=== PATIENT | female | born 1965 | race Two or more races ===

== ENCOUNTER 2021-07-17 23:47 | Emergency (ER) | payer SELFPAY ==
[~2021-07-17] VITALS: Ht 165.1 cm; Wt 88.6 kg
[2021-07-17 23:57] VITALS: BP 128/65
[2021-07-18] MEDS ORDERED: ONDANSETRON ODT 4 MG TAB.RAPDIS. PO ONE (00:15)
[2021-07-18] MEDS ORDERED: IBUPROFEN 400 MG TABLET. PO ONE (00:15)
[2021-07-18] MEDS ORDERED: ACETAMINOPHEN 500 MG TABLET PO ONE (00:15)
--- NOTE | 2021-07-18 00:39 | RAD ---
EXAM: CT head without contrast INDICATION: Headache COMPARISON: None TECHNIQUE: Axial CT imaging through the head without intravenous contrast. Sagittal and coronal refor mats were obtained. One or more of the following individualized dose reduction techniques were utilized for this examinat ion: 1. Automated exposure control 2. Adjustment of the mA and/or kV according to patient size 3. Use of iterative reconstruction technique. FINDINGS: There is artifact in the left cerebral hemisphere along the midline. No intracranial hemorrhage, acut e infarct, or mass lesion. Ventricles and sulci are normal. Mccallum-white matter differentiation is main tained. The skull and scalp are intact. There is mild to moderate mucosal thickening in the paranasal sinuses. Mastoid air cells are clear. Globes and orbits are intact. IMPRESSION: 1. No acute intracranial abnormality. 2. Paranasal sinus disease. Electronically signed by: Lala Painter MD (07/18/2021 12:36 AM) [facility]
--- NOTE | 2021-07-18 00:57 | PHYS DOC ---
Past Medical History Past Surgical History: No Surgical History Adult General Chief Complaint Chief Complaint: HEADACHE HPI HPI The patient is a 55-year-old female with a history of hypertension, [id number] diabetes and schizophrenia. [facility]. She presents via EMS for evaluation of reported vomiting at her facility. I spoke directly with the patient's nurse at her care facility; she relayed that no one at the facility had actually seen the patient vomit but reported that the patient requested to come to the hospital because she had been throwing up. On arrival to the emergency department patient denies that she has had any vomiting. Her only complaint is of a headache. She characterizes it as generalized in localization and 7 out of 10 in severity. She also tells me that she has "a lot of voices in my head" which she states is normal for her with her schizophrenia. On arrival to the emergency department patient immediately begins asking for a telephone to call her family. Any medical complaints she may have seem very secondary to a desire to speak with her family on the telephone. She relayed to the nurse that "no one likes me where I live and I just want to talk to my family." Suspect she may have not had immediate access to a telephone to speak with her family at the facility and asked to come to the hospital so that she could use a telephone. Vital signs are appropriate here and the patient is in no acute distress, calm, cooperative, alert, oriented and appropriately interactive. Review of Systems Review of Systems A 12 point review of systems was completed and was negative except where noted in HPI above. Current Medications Current Medications Current Medications Medications (Trade) Dose Ordered Sig/Stanislav Start Time Stop Time Status Last Admin Dose Admin Acetaminophen (Tylenol) 1,000 mg 1X ONCE 07/18/21 00:15 07/18/21 00:34 DC 07/18/21 00:40 1,000 MG Ibuprofen (Motrin) 800 mg 1X ONCE 07/18/21 00:15 07/18/21 00:34 DC 07/18/21 00:39 800 MG Ondansetron HCl (Zofran Odt) 4 mg 1X ONCE 07/18/21 00:15 07/18/21 00:34 DC 07/18/21 00:39 4 MG Allergies Allergies Allergies Coded Allergies Type Severity Reaction Last Updated Verified Penicillins Allergy Unknown 07/18/21 Yes Physical Exam Physical Exam 55-year-old female appearing nontoxic and in no acute distress. Head is normocephalic and atraumatic. Neck is supple and nontender. Patient ranges her neck fully in all dimensions without discomfort or distress and there is no stiffness/rigidity/meningismus seen. Kernig's and Brudzinski's are negative. Oropharynx is moist. Lungs are clear to auscultation at all stations. There is a normal S1 and S2 without rubs or gallops and capillary refill is appropriate, less than 2 seconds globally. Abdomen is soft, nontender and nondistended. Skin is warm and dry without cyanosis, clubbing or edema. Psychiatrically, the patient demonstrates appropriate mood and affect and is alert. Neurologically, cranial nerves II through XII are intact. Speech is normal. Language is normal. Coordination is normal. There is no dysmetria with [id number] or [id number] bilaterally. Strength is 5 out of 5 at all joints of bilateral upper and lower extremities. Sensation is intact light touch in bilateral upper and lower extremities. Patient ambulates with a narrow, steady, non-ataxic gait here in the emergency department and is alert and oriented x4. Current Patient Data Vital Signs Vital Signs Date Time Temp Pulse Resp B/P (MAP) Pulse Ox O2 Delivery O2 Flow Rate FiO2 07/17/21 23:57 98.3 108 16 128/65 (86) 100 Room Air 98.3 EKG EKG [] Radiology/Procedures Radiology/Procedures [] Course & Med Decision Making Course & Med Decision Making Head CT negative. Patient given ibuprofen and Tylenol for her headache and some Zofran for the vomiting she may or may not have had at the nursing facility prior to arrival. She states that as soon as she finishes her telephone call with family she that she is ready to go back to the nursing facility. No evidence of emergency condition has been identified. Will discharge back to her facility at this time. All questions have been answered. Erika Disclaimer Erika Disclaimer This electronic medical record was generated, in whole or in part, using a voice recognition dictation system. Departure Departure Impression: Primary Impression: Encounter for medical screening examination Disposition: [facility] Condition: IMPROVED Patient Instructions: Medical Screening Exam Additional Instructions: Follow-up very closely with your primary care doctor in the office in the next 2 to 4 days for a reevaluation of your symptoms and a discussion of next best steps in care. Return to the emergency department right away for worsening symptoms of any kind or with any other new symptoms of concern. HAYDEN BARRAGAN MD Jul 18, 2021 00:57
== END 2021-07-18 01:35 ==
LOC: ER 23:47
DX: R51.9 Headache, unspecified (principal); R11.10 Vomiting, unspecified; I10 Essential (primary) hypertension; E11.9 Type 2 diabetes mellitus without complications; F20.9 Schizophrenia, unspecified; Z88.0 Allergy status to penicillin
CPT/HCPCS: 70450; 82962; 99284-25